=== PATIENT | male | born 1955 | race Caucasian/White ===

== ENCOUNTER 2025-05-09 20:11 | Inpatient (IN) | payer MEDICARE ==
[~2025-05-09] VITALS: Ht 177.8 cm; Wt 78.5 kg
[2025-05-09] MEDS ORDERED: METF-886 PO (20:56)
[2025-05-09] MEDS ORDERED: LEVO500T90 MT (20:56)
[2025-05-09] MEDS ORDERED: ZOLP10TA2 PO (20:56)
[2025-05-09] MEDS: IV NORMAL SALINE 1000 ML BAG IV ONE (21:42)
[2025-05-09 21:49] LABS: PLATELET COUNT (AUTO) 126 K/uL (152-348); RED BLOOD CELL COUNT(AUTO) 4.34 MIL/uL (4.06-5.63); RED CELL DISTRIBUTION WIDTH 14.8 % (12.1-16.2); WHITE BLOOD COUNT (AUTO) 11.2 K/uL (3.6-10.2)
[2025-05-09 21:56] LABS: CREATININE 1.0 mg/dL (0.6-1.3); SODIUM SERUM 142 mmol/L (136-145); UREA NITROGEN, BLOOD 21 mg/dL (7-18)
[2025-05-09 22:02] LABS: ASPARTATE AMINOTRANSFERASE 17 U/L (15-37); TOTAL PROTEIN, SERUM 6.8 g/dL (6.4-8.2)
[2025-05-09] MEDS ORDERED: LORAZEPAM 2 MG/1 ML VIAL ONE (22:08)
[2025-05-09] MEDS: LORAZEPAM 2 MG/1 ML VIAL IV ONE (22:10)
[2025-05-10 00:14] VITALS: BP 130/69
[2025-05-10] MEDS ORDERED: ONDANSETRON 4 MG/2 ML VIAL IV PRN (01:00)
[2025-05-10] MEDS ORDERED: DEXTROSE 50% 50 ML DISP.SYRIN IV PRN (01:00)
[2025-05-10] MEDS ORDERED: IV NS 1000 ML 1,000 ML IV PRN (01:00)
[2025-05-10] MEDS ORDERED: LORAZEPAM 0.5 MG TABLET PO PRN (01:00)
[2025-05-10] MEDS ORDERED: INSULIN REGULAR, HUMAN 1000 UNIT/10 ML VIAL SQ PRN (01:00)
[2025-05-10] MEDS ORDERED: ACETAMINOPHEN 325 MG TABLET PO PRN (01:00)
[2025-05-10] MEDS ORDERED: REMEDY ESSENTIAL ZINC PASTE 113 GM TP PRN (01:00)
[2025-05-10] MEDS ORDERED: MAGNESIUM HYDROXIDE 30 ML LIQUID UDC PO PRN (01:00)
[2025-05-10 01:30] LABS: *BILIRUBIN,URIN 1+ (NEGATIVE); *BLOOD, URINE 2+ (NEGATIVE); *CLARITY,URINE SLIGHTLY CLOUDY (CLEAR); *COLOR,URINE YELLOW (YELLOW); *KETONES,URINE 2+ (NEGATIVE); *PROTEIN,URINE 2+ (NEGATIVE); *UROBILINOGEN,URINE 0.2 E.U./dl (NORMAL); LEUKOCYTE ESTERASE ,URINE NEGATIVE (NEGATIVE); NITRITE, URINE NEGATIVE (NEGATIVE); UGLUCOSE 3+ (NEGATIVE)
[2025-05-10 01:47] LABS: COARSE GRANULAR CASTS,URINE 0-3 /LPF; URINE AMORPHOUS URATE FEW /HPF
[2025-05-10 02:29] VITALS: BP 130/67; TEMP 99.2; O2SAT 92
[2025-05-10] MEDS: PANTOPRAZOLE SODIUM 40 MG TABLET.DR PO SCH (06:36)
[2025-05-10] MEDS: BLOOD SUGAR DIAGNOSTIC 1 EACH STRIP VI SCH (06:38)
[2025-05-10 07:45] VITALS: BP 167/53; TEMP 98.6; O2SAT 98
[2025-05-10 09:12] VITALS: BP 121/60; TEMP 98.6; O2SAT 98
[2025-05-10] MEDS ORDERED: LINA145C PO (10:56)
[2025-05-10] MEDS ORDERED: ESCI-9 PO (10:57)
[2025-05-10] MEDS ORDERED: OLME20TA23 PO (10:57)
[2025-05-10] MEDS ORDERED: ROSU40TA23 PO (10:57)
[2025-05-10] MEDS ORDERED: EMPA1TAB PO (10:58)
[2025-05-10] MEDS ORDERED: METFORMIN XR 500 MG TAB.SR.24H PO SCH (18:00)
[2025-05-10] MEDS ORDERED: ROSUVASTATIN CALCIUM 10 MG TABLET PO SCH (21:00)
[2025-05-11] MEDS ORDERED: LOSARTAN POTASSIUM 50 MG TABLET PO SCH (09:00)
[2025-05-11] MEDS ORDERED: EMPAGLIFLOZIN 25 MG TABLET PO SCH (09:00)
[2025-05-11] MEDS ORDERED: LINAGLIPTIN 5 MG TABLET PO SCH (09:00)
[2025-05-11] MEDS ORDERED: EMPAGLIFLOZIN PO SCH (09:00)
[2025-05-11] MEDS ORDERED: ESCITALOPRAM OXALATE 10 MG TABLET PO SCH (09:00)
[2025-05-11] MEDS ORDERED: [UNRECOGNIZED DRUG - OTHER] PO SCH (09:00)
[2025-05-11] MEDS ORDERED: LINAGLIPTIN PO SCH (09:00)
== END 2025-05-10 14:55 | disposition home or self-care (01) | DRG 64 ==
LOC: ER 20:19 → TELE3 05-10 01:02 → MEDSURG3 05-10 09:45
PROVIDERS: ADMIT Registered Nurse Psychiatric/Mental Health; ATTEND Nurse Practitioner Acute Care
DX: I60.9 Nontraumatic subarachnoid hemorrhage, unspecified (principal); G93.41 Metabolic encephalopathy; E44.0 Moderate protein-calorie malnutrition; N39.0 Urinary tract infection, site not specified; R53.1 Weakness; I11.9 Hypertensive heart disease without heart failure; R29.703 NIHSS score 3; Z79.899 Other long term (current) drug therapy; E88.09 Other disorders of plasma-protein metabolism, not elsewhere classified; E11.9 Type 2 diabetes mellitus without complications; E78.5 Hyperlipidemia, unspecified; E86.0 Dehydration; R79.89 Other specified abnormal findings of blood chemistry; J06.9 Acute upper respiratory infection, unspecified; F41.9 Anxiety disorder, unspecified; Z79.84 Long term (current) use of oral hypoglycemic drugs
CPT/HCPCS: 36415; 70450; 71045; 83605; 85025; 85730; 87040; 87086; G0378; J1815; J2060; J7040